=== PATIENT | female | born 1995 | race Caucasian/White ===

== ENCOUNTER 2017-03-19 20:59 | Emergency (ER) | payer BC ==
[~2017-03-19] VITALS: Ht 165.1 cm; Wt 84.8 kg
--- NOTE | 2017-03-19 21:01 | ED.ADGEN ---
Adult General Chief Complaint Chief Complaint Abdominal pain HPI HPI Patient is a 21 year old female who presents with right upper quadrant pain. She states it started yesterday around noon is been constant. She denies any fevers chills or vomiting. She states states nothing makes it better or worse specifically eating doesn't change it. She thought maybe she is constipated and had a normal bowel movement but that didn't change the discomfort. She does have polycystic ovary disease and states this is not in her suprapubic area. She denies any vaginal bleeding or discharge or dysuria. Review of Systems Review of Systems Constitutional: Denies fever or chills [] Eyes: Denies change in visual acuity, redness, or eye pain [] HENT: Denies nasal congestion or sore throat [] Respiratory: Denies cough or shortness of breath [] Cardiovascular: No additional information not addressed in HPI [] GI: Denies vomiting, bloody stools or diarrhea, positive for abdominal pain, nausea. : Denies dysuria or hematuria [] Musculoskeletal: Denies back pain or joint pain [] Integument: Denies rash or skin lesions [] Neurologic: Denies headache, focal weakness or sensory changes [] Endocrine: Denies polyuria or polydipsia [] Current Medications Current Medications Current Medications Medications (Trade) Dose Ordered Sig/Fadia Start Time Stop Time Status Last Admin Dose Admin Famotidine (Pepcid) 20 mg 1X ONCE 03/20/17 00:15 03/20/17 00:16 UNV Info (Do NOT chart on this entry -- for MONITORING) 1 each PRN DAILY PRN 03/19/17 22:00 03/21/17 21:59 Iohexol (Omnipaque 300 Mg/ml) 75 ml 1X ONCE 03/19/17 22:10 03/19/17 22:11 DC 03/19/17 22:12 75 ML Morphine Sulfate (Morphine 2mg Syringe) 2 mg PRN Q15MIN PRN 03/19/17 21:30 03/20/17 21:29 03/19/17 23:13 2 MG Multi-Ingredient Mouthwash/Gargle (Gi Cocktail) 20 ml 1X ONCE 03/20/17 00:15 03/20/17 00:16 03/20/17 00:05 20 ML Ondansetron HCl (Zofran) 4 mg 1X ONCE 03/19/17 22:10 03/19/17 22:11 DC 03/19/17 21:50 4 MG Promethazine HCl 12.5 mg/Sodium Chloride 50.5 ml @ 101 mls/hr PRN Q6HRS PRN 03/19/17 22:15 03/19/17 23:04 101 MLS/HR Sodium Chloride 1,000 ml @ 1,000 mls/hr Q1H 03/19/17 22:10 03/19/17 23:09 DC 03/19/17 21:50 1,000 MLS/HR Allergies Allergies Allergies Coded Allergies Type Severity Reaction Last Updated Verified Penicillins Allergy Unknown 03/19/17 Yes Physical Exam Physical Exam Constitutional: Well developed, well nourished, no acute distress, non-toxic appearance. [] HENT: Normocephalic, atraumatic, bilateral external ears normal, oropharynx moist, no oral exudates, nose normal. [] Eyes: PERRLA, EOMI, conjunctiva normal, no discharge. [] Neck: Normal range of motion, no tenderness, supple, no stridor. [] Cardiovascular:Heart rate regular rhythm, no murmur [] Lungs & Thorax: Bilateral breath sounds clear to auscultation [] Abdomen: Bowel sounds normal, soft, tender to palpation in the right upper quadrant without any rebound or guarding, no masses, no pulsatile masses. [] Skin: Warm, dry, no erythema, no rash. [] Back: No tenderness, no CVA tenderness. [] Extremities: No tenderness, no cyanosis, no clubbing, ROM intact, no edema. [] Neurologic: Alert and oriented X 3, normal motor function, normal sensory function, no focal deficits noted. [] Psychologic: Affect normal, judgement normal, mood normal. [] Current Patient Data Lab Results Laboratory Tests Test 03/19/17 21:02 03/19/17 21:25 Urine Collection Type Unknown Urine Color Yellow Urine Clarity Hazy Urine pH 5.5 Urine Specific [place] >=1.030 Urine Protein 30 mg/dl (NEG-TRACE) Urine Glucose (UA) Neg mg/dL (NEG) Urine Ketones (Stick) Trace mg/dL (NEG) Urine Blood Mod (NEG) Urine Nitrite Neg (NEG) Urine Bilirubin Neg (NEG) Urine Urobilinogen Dipstick 0.2 mg/dL (0.2 mg/dL) Urine Leukocyte Esterase Neg (NEG) Urine RBC 3-5 /HPF (0-2) Urine WBC 1-4 /HPF (0-4) Urine Squamous Epithelial Cells Mod /LPF Urine Bacteria Few /HPF (0-FEW) Urine Mucus Marked /LPF Urine Test Negative (NEG) Urine Opiates Screen Neg (NEG) Urine Methadone Screen Neg (NEG) Urine Barbiturates Neg (NEG) Urine Phencyclidine Screen Neg (NEG) Urine Amphetamine/Methamphetamine Neg (NEG) Urine Benzodiazepines Screen Neg (NEG) Urine Cocaine Screen Neg (NEG) Urine Cannabinoids Screen Neg (NEG) Urine Ethyl Alcohol Neg (NEG) White Blood Count 14.1 x10^3/uL (4.0-11.0) H Red Blood Count 4.81 x10^6/uL (3.50-5.40) Hemoglobin 15.0 g/dL (12.0-15.5) Hematocrit 42.3 % (36.0-47.0) Mean Corpuscular Volume 88 fL (79-100) Mean Corpuscular Hemoglobin 31 pg (25-35) Mean Corpuscular Hemoglobin Concent 36 g/dL (31-37) Red Cell Distribution Width 12.5 % (11.5-14.5) Platelet Count 261 x10^3/uL (140-400) Neutrophils (%) (Auto) 66 % (31-73) Lymphocytes (%) (Auto) 25 % (24-48) Monocytes (%) (Auto) 9 % (0-9) Eosinophils (%) (Auto) 0 % (0-3) Basophils (%) (Auto) 0 % (0-3) Neutrophils # (Auto) 9.3 x10^3uL (1.8-7.7) H Lymphocytes # (Auto) 3.5 x10^3/uL (1.0-4.8) Monocytes # (Auto) 1.3 x10^3/uL (0.0-1.1) H Eosinophils # (Auto) 0.1 x10^3/uL (0.0-0.7) Basophils # (Auto) 0.1 x10^3/uL (0.0-0.2) Sodium Level 140 mmol/L (136-145) Potassium Level 3.7 mmol/L (3.5-5.1) Chloride Level 104 mmol/L (98-107) Carbon Dioxide Level 24 mmol/L (21-32) Anion Gap 12 (6-14) Blood Urea Nitrogen 7 mg/dL (7-20) Creatinine 0.8 mg/dL (0.6-1.0) Estimated GFR (Cockcroft-Gault) 88.9 Glucose Level 94 mg/dL (70-99) Calcium Level 8.8 mg/dL (8.5-10.1) Total Bilirubin 0.3 mg/dL (0.2-1.0) Direct Bilirubin 0.1 mg/dL (0.0-0.2) Aspartate Amino Transferase (AST) 12 U/L (15-37) L Alanine Aminotransferase (ALT) 22 U/L (14-59) Alkaline Phosphatase 69 U/L (46-116) Total Protein 7.9 g/dL (6.4-8.2) Albumin 4.1 g/dL (3.4-5.0) Lipase 97 U/L (73-393) EKG EKG [] Radiology/Procedures Radiology/[place] [address] IMAGING REPORT Signed PATIENT: EHSAN LEONE ACCOUNT: [id number] : 1995 LOCATION: ER AGE: 21 SEX: F EXAM STATUS: PRE ER ORD. PHYSICIAN: AVEL AMBROSE MD REASON: abd pain PROCEDURE: CT ABD PELV W/ IV CONTRST ONLY Exam performed: CT scan of the abdomen and pelvis with contrast Indication: Severe abdominal pain for 2 days, elevated white count, history of polycystic ovarian disease Date of Service: 03/19/2017. Comparison: None available Technique: Contiguous helical acquisitions are obtained through the abdomen and pelvis during intravenous administration of 75 cc of Omnipaque 300. In addition sagittal and coronal reformatted images are obtained and reviewed. CT scan abdomen and pelvis findings: The lung bases are clear. Visualized heart is normal. The liver, spleen and pancreas appear normal. Gallbladder is distended. Both adrenal glands and bilateral kidneys appear normal with symmetric excretion of contrast via both kidneys. No hydronephrosis or nephrolithiasis seen The aorta is normal in caliber without aneurysm. No retroperitoneal lymphadenopathy is identified. The small bowel loops are nondilated and unremarkable . Appendix is normal. No bowel related stranding or mesenteric lymphadenopathy seen. The pelvic small bowel loops are nondilated and unremarkable .The urinary bladder is well distended and unremarkable. Uterus is retroverted. No adnexal masses seen.. No pelvic side wall lymphadenopathy or free fluid seen. Bones unremarkable. Impression CT Abdomen and pelvis: 1. No acute findings seen in the abdomen and pelvis. PQRS Compliance Statement: One or more of the following individualized dose reduction techniques were utilized for this examination: 1. Automated exposure control 2. Adjustment of the mA and/or kV according to patient size 3. Use of iterative reconstruction technique Electronically signed by: Sena Gan MD (03/19/2017 10:42 PM) DICTATED AND SIGNED BY: SENA GAN MD DATE: 03/19/172236 CC: AVEL AMBROSE MD ~ [place] [address] IMAGING REPORT Signed PATIENT: EHSAN LEONE ACCOUNT: [id number] : 1995 LOCATION: ER AGE: 21 SEX: F EXAM STATUS: REG ER ORD. PHYSICIAN: AVEL AMBROSE MD REASON: ruq pain PROCEDURE: ABDOMEN LTD Exam performed: Limited right upper quadrant sonogram. Indication: Right upper quadrant pain and nausea today Date of Service: 03/19/2017 . Comparison: None available Technique: Real-time grayscale imaging of the right upper abdomen is performed and images are obtained. Findings: The liver is normal in size and echogenicity without any focal lesions. There is no intra or extrahepatic biliary ductal dilatation. The gallbladder is well distended without any shadowing intraluminal calculus, pericholecystic fluid or gallbladder wall thickening. The gallbladder wall measures 2.0 mm. The common bile duct measures 2.7 mm. The right kidney appears unremarkable and measures 12.0 x 5.3 x 5.3 cm in length. There is no hydronephrosis or perinephric fluid collection. The visualized pancreas , aorta and IVC appear unremarkable. Impression: 1. Essentially unremarkable right upper quadrant sonogram. Electronically signed by: Sena Gan MD (03/19/2017 11:44 PM) DICTATED AND SIGNED BY: ESNA GAN MD DATE: 03/19/17 4889 CC: RAJAT FIGUEROA MD; AVEL AMBROSE MD ~ Course & Med Decision Making Course & Med Decision Making Pertinent Labs and Imaging studies reviewed. (See chart for details) Labs, CT, ultrasound of abdomen does not show any acute abnormalities. This could be gastritis that she states she is under a lot of stress. She received a GI cocktail felt somewhat better. She's being given Pepcid 20 mg by mouth 1 and discharged. She is instructed to take Pepcid [id number] and follow up with primary care physician. Return precautions given she is agreeable to the plan and being discharged in stable condition this time. Final Impression Final Impression Abdominal pain [] Problems: Dragon Disclaimer Dragon Disclaimer This electronic medical record was generated, in whole or in part, using a voice recognition dictation system. AVEL AMBROSE MD March 19, 2017 21:01
[2017-03-19 21:28] LABS: BILIRUBIN,URINE NEG (NEG); CLARITY,URINE HAZY; COLOR,URINE YELLOW; GLUCOSE,URINE NEG (NEG); NITRITE,URINE NEG (NEG); UROBILINOGEN,URINE 0.2 mg/dL (0.2 mg/dL)
[2017-03-19 21:32] LABS: U PREG PATIENT NEGATIVE (NEG)
[2017-03-19 21:44] LABS: AMPHETAMINE/METHAMPHETAMINE NEG (NEG); BARBITURATES NEG (NEG); BENZODIAZEPINES NEG (NEG); CANNABINOIDS NEG (NEG); COCAINE NEG (NEG); METHADONE NEG (NEG); OPIATES NEG (NEG); PHENCYCLIDINE NEG (NEG)
[2017-03-19 21:48] LABS: BASO # 0.1 x10^3/uL (0.0-0.2); BASO % 0 % (0-3); EOS # 0.1 x10^3/uL (0.0-0.7); EOS % 0 % (0-3); HEMATOCRIT 42.3 % (36.0-47.0); LYMPH # 3.5 x10^3/uL (1.0-4.8); LYMPH % 25 % (24-48); MEAN CORPUSCULAR HEMOGLOBIN 31 pg (25-35); MEAN CORPUSCULAR HGB CONC 36 g/dL (31-37); MEAN CORPUSCULAR VOLUME 88 fL (79-100); MONO # 1.3 x10^3/uL (0.0-1.1); MONO % 9 % (0-9); NEUT # 9.3 x10^3uL (1.8-7.7); NEUT % 66 % (31-73); PLATELET COUNT 261 x10^3/uL (140-400); RED BLOOD COUNT 4.81 x10^6/uL (3.50-5.40); RED CELL DISTRIBUTION WIDTH 12.5 % (11.5-14.5); WHITE BLOOD COUNT 14.1 x10^3/uL (4.0-11.0)
[2017-03-19 21:48] LABS: BACTERIA,URINE FEW /HPF (0-FEW); SQUAMOUS EPITHELIAL CELL,UR MOD /LPF
[2017-03-19] MEDS: MORPHINE SULFATE 2 MG/ML DISP.SYRIN. IV/SQ PRN ×2 (21:50→23:13)
[2017-03-19 21:57] LABS: ALBUMIN 4.1 g/dL (3.4-5.0); CALCIUM 8.8 mg/dL (8.5-10.1); CREATININE 0.8 mg/dL (0.6-1.0); DIRECT BILIRUBIN 0.1 mg/dL (0.0-0.2); GFR 88.9; POTASSIUM 3.7 mmol/L (3.5-5.1); TOTAL BILIRUBIN 0.3 mg/dL (0.2-1.0); TOTAL PROTEIN 7.9 g/dL (6.4-8.2)
[2017-03-19] MEDS ORDERED: CONTRAST GIVEN MC PRN (22:00)
[2017-03-19] MEDS ORDERED: IV NORMAL SALINE 1,000ML 1,000 ML IV SCH (22:10)
[2017-03-19] MEDS ORDERED: IOHEXOL 300 MG/ML 75 ML VIAL. IV ONE (22:10)
[2017-03-19] MEDS ORDERED: ONDANSETRON PF 4 MG/2 ML VIAL. IV ONE (22:10)
[2017-03-19] MEDS ORDERED: PROMETHAZINE 12.5 MG in IV NORMAL SALINE 50ML 50 ML IV PRN (22:15)
--- NOTE | 2017-03-19 22:45 | RAD ---
Exam performed: CT scan of the abdomen and pelvis with contrast Indication: Severe abdominal pain for 2 days, elevated white count, history of polycystic ovarian disease Date of Service: 03/19/2017. Comparison: None available Technique: Contiguous helical acquisitions are obtained through the abdomen and pelvis during intravenous administration of 75 cc of Omnipaque 300. In addition sagittal and coronal reformatted images are obtained and reviewed. CT scan abdomen and pelvis findings: The lung bases are clear. Visualized heart is normal. The liver, spleen and pancreas appear normal. Gallbladder is distended. Both adrenal glands and bilateral kidneys appear normal with symmetric excretion of contrast via both kidneys. No hydronephrosis or nephrolithiasis seen The aorta is normal in caliber without aneurysm. No retroperitoneal lymphadenopathy is identified. The small bowel loops are nondilated and unremarkable . Appendix is normal. No bowel related stranding or mesenteric lymphadenopathy seen. The pelvic small bowel loops are nondilated and unremarkable .The urinary bladder is well distended and unremarkable. Uterus is retroverted. No adnexal masses seen.. No pelvic side wall lymphadenopathy or free fluid seen. Bones unremarkable. Impression CT Abdomen and pelvis: 1. No acute findings seen in the abdomen and pelvis. PQRS Compliance Statement: One or more of the following individualized dose reduction techniques were utilized for this examination: 1. Automated exposure control 2. Adjustment of the mA and/or kV according to patient size 3. Use of iterative reconstruction technique Electronically signed by: Sena Gan MD (03/19/2017 10:42 PM)
--- NOTE | 2017-03-19 23:47 | RAD ---
Exam performed: Limited right upper quadrant sonogram. Indication: Right upper quadrant pain and nausea today Date of Service: 03/19/2017 . Comparison: None available Technique: Real-time grayscale imaging of the right upper abdomen is performed and images are obtained. Findings: The liver is normal in size and echogenicity without any focal lesions. There is no intra or extrahepatic biliary ductal dilatation. The gallbladder is well distended without any shadowing intraluminal calculus, pericholecystic fluid or gallbladder wall thickening. The gallbladder wall measures 2.0 mm. The common bile duct measures 2.7 mm. The right kidney appears unremarkable and measures 12.0 x 5.3 x 5.3 cm in length. There is no hydronephrosis or perinephric fluid collection. The visualized pancreas , aorta and IVC appear unremarkable. Impression: 1. Essentially unremarkable right upper quadrant sonogram. Electronically signed by: Sena Gan MD (03/19/2017 11:44 PM)
[2017-03-20 00:09] VITALS: BP 120/70
[2017-03-20] MEDS ORDERED: LIDO:MAALOX 1:1 20 ML SINGLE DOSE PO ONE (00:15)
[2017-03-20] MEDS ORDERED: FAMOTIDINE 20 MG TABLET PO ONE (00:15)
[2017-03-21] MEDS ORDERED: HYDR-971 PO (08:29)
== END 2017-03-20 00:17 | disposition home or self-care (01) ==
LOC: ER 20:59
DX: R10.11 Right upper quadrant pain (principal); Z88.0 Allergy status to penicillin
CPT/HCPCS: 36415; 74177; 76705; 80048; 80076; 80305; 81001; 81025; 83690; 85027; 96361; 96365; 96375; 96376; 99285; J2270; J2405; J2550; Q9967; G0481; J7030

== ENCOUNTER 2017-03-21 06:58 | Emergency (ER) | payer BC ==
[~2017-03-21] VITALS: Ht 165.1 cm; Wt 83.9 kg
--- NOTE | 2017-03-21 07:21 | PHYS DOC ---
General Chief Complaint: BACK PAIN OR INJURY Stated Complaint: BACK PAIN Time Seen by MD: 07:04 Source: patient, old records Exam Limitations: no limitations Problems: History of Present Illness Initial Comments Pt is 21/F to ED for epigastric/RUQ/R flank pain. Pt was seen here two days ago with similar symptoms, at that time primarily RUQ pain. No vomitting/diarrhea/fever/chills/travel/bad food exposure, just RUQ and epigastric "burning/stabbing" pain which she doesn't notice so much thru the day but becomes much worse at night. Denies NSAIDs and heavy etoh intake, pt does smoke cigarettes and readily admits she is under "great amount of stress " denies SI. Two days ago pt sx relieved with GI cocktail, CT Abd/Pelvis as well as RUQ Abdominal US unremarkable. Pt with slight leukocytosis 14k, otherwise reassuring labs and urine studies. Pt d/c home with abdominal pain likely multifactorial, GERD and stress. Advised OTC pepcid and f/u PCP. Pt states sx were fairly well controlled until last night. States she had a ham sandwich and bottle of water right before bed, spent the night belching with epigastric/RUQ and now right flank burning/stabbing pain. During the night sx 9/10, currently in ED sx mild/mod. Pt denies travel/bad food exposure, denies PO relation to symptoms. Intermittent nausea, no emesis last BM yesterday "normal" denies any stool changes in caliber or melena/hematochezia. Appetite preserved, pt remains without fever/chills/diaphoresis/myalgias/JOSEPH or other systemic s/s. Timing/Duration: constant (two days) Severity: moderate Modifying Factors: improves with medication Associated Symptoms: nausea/vomiting, other Allergies: Coded Allergies: Penicillins (Verified Allergy, Unknown, 03/21/17) Past Medical History Medical History: other (polycystic ovaries) LMP (Females 10-50): 1 month (02/13) Social History Smoker: cigarettes Alcohol: none Drugs: none Review of Systems Constitutional: denies chills, denies diaphoresis, denies fever, denies malaise Respiratory: denies cough, denies shortness of breath, denies wheezing Cardiovascular: denies chest pain, denies palpitations, denies syncope Gastrointestinal: see HPI, abdominal pain, denies constipation, denies diarrhea , nausea, denies vomiting Genitourinary: denies dysuria, denies frequency, denies hematuria Musculoskeletal: see HPI, denies joint pain, denies muscle pain, denies muscle stiffness, denies neck pain Psychiatric/Neurological: denies headache, denies numbness, denies paresthesia Physical Exam General Appearance: WD/WN, no apparent distress Eyes: bilateral eye normal inspection, bilateral eye PERRL, bilateral eye EOMI Ear, Nose, Throat: hearing grossly normal, normal ENT inspection, normal pharynx Neck: non-tender, supple Respiratory: normal breath sounds, no respiratory distress Cardiovascular: normal peripheral pulses, regular rate, rhythm Gastrointestinal: normal bowel sounds, soft (very mild epigastric TTP neg crenshaw/mcburney, nondistended, ), no organomegaly Rectal: deferred Back: no CVA tenderness, no vertebral tenderness 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 I discussed likelihood sx GERD-related. Discussed pathophysiology of GERD at length and questions answered. Discussed GERD diet/lifestyle modifications, H2 blockers/PPIs, need to stop smoking and f/u with PCP and likely GI as outpt. After fully discussing treatment plan pt tearful. She opens up at this point, advising me that a few days ago her 's uncle committed suicide and this evening she flies out to [place] to attend . This is the 3rd family this week. Pt has been trying to take care of her spouse and the household while continuing to work and is feeling overwhelmed. Denies SI/HI or depression. I discussed taking some time off work to heal physically and emotionally. Discussed stress management, exercise/counseling, breakthru pain meds. Pt expressed agreement/understanding with treatment plan and will return if needed. Departure Time of Disposition: 08:23 Disposition: 01 HOME, SELF-CARE Diagnosis: GERD/gastritis, grief reaction, tobaccoism Condition: STABLE Patient Instructions: Diet for Gastroesophageal Reflux Disease, Adult, Easy-to- Read, Gastroesophageal Reflux Disease, Adult, [id number], Grief Reaction, Smoking, You Can Quit, [id number] Additional Instructions: Please review the patient education materials given by ED staff. Pay special attention to diet and lifestyle modifications you can start today to improve symptoms. Off work thru 03/25, note given. Take it easy and catch your breath today before your flight. Discontinue smoking, seek medical assistance if necessary. OTC pepcid twice daily, omeprazole once daily for two weeks. Rx: norco 5mg #10 Take norco with food to avoid nausea, and stool softeners to avoid constipation. Increase daily exercise and/or seek counseling as needed to assist you during this difficult time. You will need to follow up with a primary care doctor as outpatient in 2 weeks for recheck and most likely outpatient gastrointestinal specialist referral. Return to ED with new or changing symptoms. MARIA ANTONIA MAN DO March 21, 2017 07:21
[2017-03-21] MEDS ORDERED: FAMOTIDINE 20 MG TABLET PO ONE (07:45)
[2017-03-21] MEDS ORDERED: LIDO:MAALOX 1:1 20 ML SINGLE DOSE PO ONE (07:45)
[2017-03-21] MEDS ORDERED: ONDANSETRON ODT 4 MG TAB.RAPDIS PO ONE (07:45)
[2017-03-21 07:56] LABS: BASO % 0 % (0-3); EOS # 0.1 x10^3/uL (0.0-0.7); EOS % 1 % (0-3); HEMATOCRIT 40.3 % (36.0-47.0); HEMOGLOBIN 13.9 g/dL (12.0-15.5); LYMPH # 2.5 x10^3/uL (1.0-4.8); LYMPH % 22 % (24-48); MEAN CORPUSCULAR HEMOGLOBIN 31 pg (25-35); MEAN CORPUSCULAR HGB CONC 35 g/dL (31-37); MEAN CORPUSCULAR VOLUME 89 fL (79-100); MONO # 0.7 x10^3/uL (0.0-1.1); MONO % 6 % (0-9); NEUT % 71 % (31-73); PLATELET COUNT 235 x10^3/uL (140-400); RED BLOOD COUNT 4.55 x10^6/uL (3.50-5.40); RED CELL DISTRIBUTION WIDTH 12.3 % (11.5-14.5); WHITE BLOOD COUNT 11.4 x10^3/uL (4.0-11.0)
[2017-03-21 08:05] LABS: BACTERIA,URINE 0 /HPF (0-FEW); BILIRUBIN,URINE NEG (NEG); CLARITY,URINE CLEAR; COLOR,URINE YELLOW; GLUCOSE,URINE NEG (NEG); NITRITE,URINE NEG (NEG); SQUAMOUS EPITHELIAL CELL,UR FEW /LPF; UROBILINOGEN,URINE 0.2 mg/dL (0.2 mg/dL); WBC,URINE 0 /HPF (0-4)
[2017-03-21 08:06] LABS: ALBUMIN/GLOBULIN RATIO 1.2 (1.0-1.7); CALCIUM 8.6 mg/dL (8.5-10.1); CREATININE 0.8 mg/dL (0.6-1.0); GFR 88.9; POTASSIUM 3.9 mmol/L (3.5-5.1); TOTAL BILIRUBIN 0.4 mg/dL (0.2-1.0); TOTAL PROTEIN 7.4 g/dL (6.4-8.2)
[2017-03-21] MEDS ORDERED: HYDR-971 PO (08:29)
[2017-03-21 08:32] VITALS: BP 123/87
== END 2017-03-21 08:33 | disposition home or self-care (01) ==
LOC: ER 06:58
DX: R10.11 Right upper quadrant pain (principal); F43.20 Adjustment disorder, unspecified; F17.210 Nicotine dependence, cigarettes, uncomplicated; Z88.0 Allergy status to penicillin
CPT/HCPCS: 36415; 80053; 81001; 83690; 85027; 99284; Q0162

== ENCOUNTER 2019-01-25 22:18 | Emergency (ER) | payer BC ==
[~2019-01-25] VITALS: Ht 165.1 cm; Wt 86.2 kg
[~2019-01-25 22:18] MED LIST: HYDR-3165 PO
[2019-01-25] MEDS ORDERED: ONDANSETRON ODT 4 MG TAB.RAPDIS ONE (22:30)
[2019-01-25] MEDS ORDERED: ONDANSETRON ODT 4 MG TAB.RAPDIS PO ONE (22:30)
--- NOTE | 2019-01-25 22:43 | PHYS DOC ---
Past History Past Medical History: Other Past Surgical History: Tonsillectomy Alcohol Use: Occasionally Drug Use: None Adult General Chief Complaint Chief Complaint: NAUSEA/VOMITING/DIARRHEA HPI HPI Patient is a 23 year old female who presents with complaint of nausea, vomiting , and diarrhea. Patient states that her symptoms started approximately 14 hours ago upon awakening. States that she is had total of 10 episodes of vomiting and almost the same number of loose stools throughout the day today. Notes that she has had family and close contacts who have expressed similar symptoms that have developed over this past weekend. Denies any known fever. Denies any localizing pain to the abdomen. States that she has not been able to tolerate oral intake and came to the emergency department expressing concern that she may becoming dehydrated. States last menstrual period was over 2 months ago but has history of polycystic ovarian syndrome and notes that she has had irregular periods before. Review of Systems Review of Systems Constitutional: Denies fever or chills [] Eyes: Denies change in visual acuity, redness, or eye pain [] HENT: Denies nasal congestion or sore throat [] Respiratory: Denies cough or shortness of breath [] Cardiovascular: Denies chest pain or edema[] GI: Nausea, vomiting, diarrhea, denies abdominal pain[] : Denies dysuria or hematuria [] Musculoskeletal: Denies back pain or joint pain [] Integument: Denies rash or skin lesions [] Neurologic: Denies headache, focal weakness or sensory changes [] All other systems were reviewed and found to be within normal limits, except as documented in this note. Current Medications Current Medications Current Medications Medications (Trade) Dose Ordered Sig/[facility] Start Time Stop Time Status Last Admin Dose Admin Ondansetron HCl (Zofran Odt) 4 mg STK-MED ONCE 01/25/19 22:30 01/25/19 22:31 DC Allergies Allergies Allergies Coded Allergies Type Severity Reaction Last Updated Verified Penicillins Allergy Unknown 03/21/17 Yes Physical Exam Physical Exam Constitutional: Alert, afebrile, appears ill but in no acute distress. [] HENT: Normocephalic, atraumatic, bilateral external ears normal, oropharynx moist, no oral exudates, nose normal. [] Eyes: PERRLA, EOMI, conjunctiva normal, no discharge. [] Neck: Normal range of motion, no tenderness, supple, no stridor. [] Cardiovascular: Tachycardia, regular rhythm, no murmur [] Lungs & Thorax: Bilateral breath sounds clear to auscultation [] Abdomen: Bowel sounds normal, soft, no tenderness, no masses, no pulsatile masses. [] Skin: Warm, dry, no erythema, no rash. [] Back: No tenderness, no CVA tenderness. [] Extremities: No tenderness, no cyanosis, no clubbing, ROM intact, no edema. [] Neurologic: Alert and oriented X 3, normal motor function, normal sensory function, no focal deficits noted. [] Current Patient Data Vital Signs Vital Signs Date Time Temp Pulse Resp B/P (MAP) Pulse Ox O2 Delivery O2 Flow Rate FiO2 01/25/19 22:20 99.3 113 18 96 Room Air Lab Results Laboratory Tests Test 01/25/19 22:47 Bedside Urine HCG, Qualitative hcg negative Current Medications Medications (Trade) Dose Ordered Sig/Fadia Route PRN Reason Start Time Stop Time Status Last Admin Dose Admin Ondansetron HCl (Zofran Odt) 4 mg 1X ONCE PO 01/25/19 22:30 01/25/19 22:32 DC 01/25/19 22:32 Ondansetron HCl (Zofran Odt) 4 mg STK-MED ONCE .ROUTE 01/25/19 22:30 01/25/19 22:31 DC EKG EKG Not performed[] Radiology/Procedures Radiology/Procedures Not performed[] Course & Med Decision Making Course & Med Decision Making Pertinent Labs and Imaging studies reviewed. (See chart for details) The patient's abdominal exam is benign. Symptoms appear consistent with viral gastroenteritis. Patient was treated with Zofran ODT in the emergency department. Underwent fluid challenge with no further vomiting noted. Given starter pack of Zofran ODT an additional prescription for outpatient treatment. Advised follow-up in 2-3 days with primary doctor if symptoms are not improving and return to emergency department for any worsening symptoms. Patient was understanding and in agreement with treatment plan.[] Dragon Disclaimer Dragon Disclaimer This electronic medical record was generated, in whole or in part, using a voice recognition dictation system. Departure Departure: Impression: Primary Impression: Nausea and vomiting Additional Impression: Diarrhea Disposition: 01 HOME, SELF-CARE Condition: IMPROVED Referrals: RAJAT FIGUEROA MD (PCP) Patient Instructions: Diarrhea, Nausea and Vomiting Additional Instructions: Follow-up with Dr. Figueroa in the next 3 days for reevaluation if symptoms have not improved. Return to the emergency department for any worsening symptoms. Scripts Ondansetron (ONDANSETRON ODT) 4 Mg Tab.rapdis 1 TAB PO Q6-8HRS PRN for NAUSEA/VOMITING, #10 TAB Prov: LIZ ANDREWS MD 01/25/19 Problem Qualifiers Primary Impression: Nausea and vomiting Vomiting type: unspecified Vomiting Intractability: unspecified Qualified Codes: R11.2 - Nausea with vomiting, unspecified Additional Impression: Diarrhea Diarrhea type: presumed infectious Qualified Codes: R19.7 - Diarrhea, unspecified LIZ ANDREWS MD Jan 25, 2019 22:42
[2019-01-25 23:25] VITALS: BP 111/71
[2019-01-25] MEDS ORDERED: ONDA4TAB12 PO (23:27)
[2019-01-25] MEDS ORDERED: ONDANSETRON 4MG ODT 4TABLET STARTPACK. PO ONE (23:45)
[2019-01-26 00:36] LABS: CLARITY,URINE CLOUDY
[2019-01-26 00:37] LABS: BILIRUBIN,URINE NEG (NEG); COLOR,URINE YELLOW; GLUCOSE,URINE NEG (NEG); NITRITE,URINE NEG (NEG); UROBILINOGEN,URINE 0.2 mg/dL (0.2 mg/dL)
== END 2019-01-25 23:30 | disposition home or self-care (01) ==
LOC: ER 22:18
DX: R11.2 Nausea with vomiting, unspecified (principal); R19.7 Diarrhea, unspecified; Z88.0 Allergy status to penicillin
CPT/HCPCS: 81003; 81025; 99283; Q0162